=== PATIENT | female | born 1955 | race Caucasian/White ===

== ENCOUNTER → 2018-09-25 | Outpatient (CLI) | payer BC ==
[~2018-09-25] MED LIST: GASTROGRAFIN SOLUTION 30ML (Q9963) As Ordered ONE; ISOVUE-370 76% 100ML VIAL (Q9967) As Ordered ONE
--- NOTE | 2018-09-25 17:07 | REP ---
CT of the abdomen and pelvis multiphase imaging: Scanning of the abdomen is performed without IV contrast. This is followed by scanning of the abdomen and pelvis during the portal venous phase of IV contrast enhancement. This is followed by scanning of the abdomen during the delayed equilibrium phase of enhancement. The bowel contrast is used on all phases of the study. The liver and spleen are normal size and homogeneous on all phases of the study. The gallbladder and pancreas are unremarkable. There is a six point 8 cm hiatal hernia. The adrenals are unremarkable. The kidneys are unremarkable. The abdominal aorta is unremarkable except for occasional calcified atheroma. There is no periaortic lymph node enlargement or mass. There is no mesenteric lymph node enlargement. The bowel loops are unremarkable. Pelvis: There are enlarged iliac and femoral nodes bilaterally, the largest being a right iliac node measuring up to 16 mm short axis. There are inguinal nodes bilaterally, the largest is in measuring 15 mm short axis. The uterus, adnexa and bladder are unremarkable. Impression: There are enlarged iliac, femoral and inguinal nodes bilaterally. There is no periaortic lymph node enlargement or mass. No mesenteric lymph node enlargement. There is no ascites. The liver and spleen are normal size and homogeneous. There is a fixed hiatal hernia measuring up to 6.8 cm. Electronically Signed by Markus Cueto MD 09/25/2018 04:59 P
--- NOTE | 2018-09-25 17:26 | REP ---
CT of the chest with IV contrast: There are no comparisons. There are no infiltrates. There are no pleural effusions. There are no lung masses or nodules. There is no mediastinal, hilar or axillary lymph node enlargement. There is a 7 ml hypodense nodule in the thyroid at the confluence of the isthmus and left lobe. Consider follow-up thyroid ultrasound. There is a hiatal hernia measuring up to 6.7 centimeters in diameter. There are no lytic, blastic or destructive skeletal changes. Impression: No lymphadenopathy is identified. No lung masses, nodules, infiltrates or effusions are identified. There is a hiatal hernia as described. Electronically Signed by Markus Cueto MD 09/25/2018 05:17 P
== END ==
LOC: M RAD 14:03
PROVIDERS: ATTEND Internal Medicine Hematology & Oncology
DX: C85.85 Other specified types of non-Hodgkin lymphoma, lymph nodes of inguinal region and lower limb (principal)
CPT/HCPCS: 71260; 74178; Q9963; Q9967

== ENCOUNTER → 2018-10-23 | Outpatient (CLI) | payer BC ==
[~2018-10-23] MED LIST changes: +ESOM0.1C PO; +FERR325T3 PO; -GASTROGRAFIN SOLUTION 30ML (Q9963) As Ordered ONE; -ISOVUE-370 76% 100ML VIAL (Q9967) As Ordered ONE; +LISI10TA2 PO; +METF10004 PO; +SIMV10TA2 PO; +VITATAB74 PO
--- NOTE | 2018-10-24 15:02 | RADONC ---
RADIATION ONCOLOGY CONSULTATION NOTE DATE: 10/23/2018 CHART NUMBER: [id number] DIAGNOSIS: Tootie marginal zone lymphoma. STAGE: IIA. ECOG PERFORMANCE STATUS: 0. CONSULTATION NOTE: Ms. 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 HISTORY OF PRESENT ILLNESS: The patient was in the usual state of health but noticed a small lump in the back of her right knee since around 2016. Over the next year or so the lump slowly began increasing in size. On 07/10/2018 an MRI of the right knee was undertaken and revealed a 13.9 cm x 8.6 cm x 7.7 cm mass in the posterior soft tissues of the knee. There was noted to be evidence of invasion and involvement of the long head of the biceps femoris, the semitendinosus and the semimembranous muscle. On 07/27/2018 the patient was seen by Dr. Beard and a biopsy of the mass was undertaken which revealed a tootie marginal zone lymphoma. Subsequent CT scan done 09/25/2018 showed enlarged iliac and femoral lymph nodes bilaterally. The largest right iliac node measured 16 mm and the largest inguinal node 15 mm. These were of unknown significance. The patient has no B symptoms. PAST MEDICAL HISTORY: The patient's past medical history is positive for diabetes, hypertension and arthritis. ALLERGIES: The patient has no known drug allergies. SOCIAL HISTORY: The patient has smoked one pack of cigarettes per day for approximately 25 years. She quit in the year 1999. She drinks alcohol socially. FAMILY HISTORY: The patient's family history is positive for father with prostate cancer. REVIEW OF SYSTEMS: The patient's review of systems is positive for some decreased energy and weakness in her arms and legs. It is otherwise noncontributory. She denies nausea, vomiting, fevers, chills, night sweats, diplopia, headaches, anxiety or depression, anorexia, weight loss, visual disturbances, chest pain, urinary or bowel difficulties, bone pain, or neurological problems. PHYSICAL EXAMINATION: The patient is a well-developed, well-nourished, female in no acute distress. HEENT exam is normocephalic, atraumatic. Extraocular movements are intact. There is no palpable cervical, supraclavicular, infraclavicular, axillary, or inguinal lymphadenopathy present. Lungs are clear to auscultation and percussion. Heart has a regular rate and rhythm. Abdomen is benign with no hepatosplenomegaly, masses, or tenderness. Breast examination reveals no masses or discharge bilaterally. Skeletal examination reveals no tenderness to pressure or percussion of the bony skeleton. Extremities reveal no clubbing, cyanosis, or edema. In the posterior aspect of the right knee there is a fixed hard mass with some erythema of the skin consistent with her above mentioned history. Neurologic exam is grossly intact, as is the remainder of the physical examination. ASSESSMENT: Clearly the patient is a candidate for external beam radiation therapy and I have so informed her informed her. I have discussed with the patient in detail the potential benefits as well as possible acute and chronic sequelae of external beam radiation therapy. We discussed logistics of treatment planning, simulation and subsequent fractionated daily radiation treatments. I have discussed with the patient in detail the NCCN guidelines for marginal cell lymphomas and we will plan treating accordingly. I have scheduled the patient for the next available simulation slot and radiation treatments will begin subsequent. Thank you for allowing us to participate in the care of this very pleasant woman. If I could be of any further assistance or provide you with any information, please feel free to contact me anytime. cc: MD Eric Rodriguez MD Robin Frost, RPA-C
== END ==
LOC: M ONCR 13:41
PROVIDERS: ATTEND Radiology Radiation Oncology
DX: C85.90 Non-Hodgkin lymphoma, unspecified, unspecified site (principal)

== ENCOUNTER → 2018-11-07 | Outpatient (RCR) | payer BC ==
[2018-10-30 14:56] LABS: HEMOGLOBIN 10.5 g/dl (12.0-15.5); LYMPH % 19.8 % (24.0-44.0); MEAN CORPUSCULAR HEMOGLOBIN 22.5 pg (27.0-33.0); MEAN CORPUSCULAR HGB CONC 31.8 g/dl (32.0-36.5); MEAN CORPUSCULAR VOLUME 70.8 fl (80.0-96.0); NEUTROPHILS # 5.6 10^3/uL (1.8-7.7); NEUTROPHILS % 69.4 % (36.0-66.0); RED BLOOD COUNT 4.66 10^6/uL (4.00-5.40)
--- NOTE | 2018-11-01 09:52 | RADONC ---
RADIATION ONCOLOGY SIMULATION NOTE DATE: 10/30/2018 CHART #: [id number] Ms. Feliciano was taken to the CT scan for CT simulation of her right leg field. CT was accomplished without difficulty or discomfort. Radiation treatment planning is underway and radiation treatments will begin subsequently. An immobilization device was created and will be used throughout the course of treatment. It was created without difficulty or discomfort. I was physically present throughout the course of CT simulation.
--- NOTE | 2018-11-06 11:58 | RADONC ---
RADIATION ONCOLOGY PROGRESS NOTE DATE: 11/05/2018 CHART #: [id number] Ms. Feliciano was taken to the linear accelerator today for port filming. Port films of her leg flores were completed without difficulty or discomfort. Radiation treatments will begin tomorrow. We will change our bolus to a custom bolus.
[~2018-11-07] MED LIST changes: +CHOL100029 PO; +LISI10TA15 PO; -LISI10TA2 PO; -SIMV10TA2 PO; +SIMV10TA21 PO
== END ==
LOC: M ONCR 10-30 13:44
PROVIDERS: ATTEND Radiology Radiation Oncology
DX: C83.9 Non-follicular (diffuse) lymphoma, unspecified (principal)

== ENCOUNTER 2018-12-03 15:05 | Outpatient (RCR) | payer BC ==
--- NOTE | 2018-11-13 10:07 | RADONC ---
RADIATION ONCOLOGY PROGRESS NOTE: DATE: 11/12/2018 CHART NUMBER: [id number] Mrs. Feliciano with a diagnosis of rodríguez marginal zone lymphoma, stage II A is currently receiving treatment to the right knee. She feels that her swelling in this area has decreased somewhat. Her energy level is adequate and she reports no specific complaints referable to her disease or to her treatments. REVIEW OF SYSTEMS: The patient denies any nausea, vomiting, coughing, sputum production, hemoptysis or pain. Her energy level is such that she is able to maintain most of her day-to-day activities without any alteration of her lifestyle. Skin irritation is denied with the exception of some dry skin. EXAMINATION FINDINGS: The skin within the irradiated volume shows no evidence thus far. There is no palpable peripheral lymphadenopathy. The right knee swelling does indeed seemed to be decreased. The remainder of the physical examination is unchanged. IMPRESSION: Tolerating therapy well with no untoward side effects. PLAN: Treatments to continue.
--- NOTE | 2018-11-21 10:48 | RADONC ---
RADIATION ONCOLOGY PROGRESS NOTE DATE OF SERVICE: 11/19/2018 CHART #: [id number] Mrs. Feliciano with a diagnosis of rodríguez marginal zone lymphoma, stage II A, is currently receiving local regional radiotherapy to her right knee and she has achieved a dose thus far of 2000 cGy of a proposed 3000 cGy and reevaluate. The tumor continues to regress. She reports no issues related to her disease or to her treatments. REVIEW OF SYSTEMS: She denies any nausea, vomiting, coughing, sputum production, hemoptysis, pain, night sweats or fevers. Her energy level is slightly diminished, but she is still able to maintain most day-to-day activities without any alteration of her lifestyle. She does complain of some skin dryness, slight irritation and reddening. EXAMINATION FINDINGS: The skin within the irradiated volume shows a mild erythematous blush without desquamation. There is no palpable peripheral lymphadenopathy. Lungs are clear. The remainder of the examination findings are unchanged. IMPRESSION: Tolerating therapy well. PLAN: Treatments to continue.
--- NOTE | 2018-11-29 14:41 | RADONC ---
RADIATION ONCOLOGY PROGRESS NOTE DATE: 11/26/2018 CHART NUMBER: [id number] Ms. Feliciano is presently at a dose of 3000 cGy to her right leg and is tolerating treatments quite well at this point with no complaints related to her radiation therapy. She is having no skin pain or other discomfort. The patient's review of systems is noncontributory. Denies nausea, vomiting, fevers, chills, night sweats, diplopia, headaches, anxiety or depression, anorexia, weight loss, visual disturbances, chest pain, urinary or bowel difficulties, bone pain, or neurological problems. PHYSICAL EXAMINATION The patient's skin is in excellent condition with no evidence of radiation change present. There is no moist or dry desquamation. At this time, however, there continues to be a clearly palpable mass involving the posterior portion of her leg just behind her knee. This does continue to appear to involve at least the subcutaneous tissue. It is however much smaller than it was at presentation. We had planned on completing this patient at the present dose of 3000 cGy as per the NCCN guidelines. I put a call in to my colleague Dr. Gibson and discussed this case at length. We are both concerned that we have not yet achieved a complete response and we have also both agreed that it would be miller at this point to deliver an additional five fractions, bringing the dose of 4000 cGy. Indeed, historically, we have delivered a larger dose than the present guidelines recommended and the addition of an additional few fractions of treatment are unlikely to add any morbidity. Since this is a one-time deal in order to achieve local control, we both feel it safer to deliver a little additional radiation at this point. I discussed this at length with the patient and she also agrees she would rather have an additional few fractions of radiation than have the possibility of less than complete response and recurrence. Therefore, I am planning on continuing this patient and we will adjust the treatment plan accordingly.
[~2018-12-03 15:05] MED LIST changes: -CHOL100029 PO
--- NOTE | 2018-12-05 09:34 | RADONC ---
RADIATION ONCOLOGY TREATMENT SUMMARY DATE: 12/03/2018 CHART #: [id number] DIAGNOSIS: Tootie marginal zone lymphoma. STAGE: II A. ECOG PERFORMANCE STATUS: 0. TREATMENT SUMMARY: Ms. Feliciano is a very pleasant 63-year-old white female with the diagnosis of what appears to be a stage II A tootie marginal cell zone lymphoma involving the back of her right knee who presented to us for consideration of definitive external beam radiation therapy. We treated the patient to the back of her right knee for a total dose of 4000 cGy delivered in 20 fractions of 200 cGy each over 26 elapsed days from 11/06/2018 through 12/03/2018. The patient's knee was treated on the linear accelerator utilizing parallel opposed lateral flores with a 6 MV photon beam. A tissue equivalent bolus was placed over the involved skin region. Ms. Feliciano tolerated her treatments quite well and was able to complete therapy as prescribed without interruption. We had initially planned on completing her therapy after 3000 cGy, however, at that point it was found that she still had quite a bit of residual involvement. I spoke at length with her other radiation oncologist, Dr. Rodriguez, and we decided it safer to deliver an additional 1000 cGy to this area. I have scheduled the patient to see me again in 1 month for further followup. She will also continue to be followed by her other physicians as well. cc: MD Eric Rodriguez MD Robin Frost, [facility]
[2019-01-31] MEDS ORDERED: CHOL100029 PO (14:25)
== END 2018-12-08 ==
LOC: M ONCR 15:05
PROVIDERS: ATTEND Radiology Radiation Oncology
DX: C83.9 Non-follicular (diffuse) lymphoma, unspecified (principal)

== ENCOUNTER → 2019-01-02 | Outpatient (CLI) | payer BC ==
[~2019-01-02] MED LIST changes: +SIMV10TA2 PO; -SIMV10TA21 PO
--- NOTE | 2019-01-03 12:28 | RADONC ---
RADIATION ONCOLOGY FOLLOWUP NOTE DATE: 01/02/2019 CHART NUMBER: [id number] DIAGNOSIS: Tootie marginal zone lymphoma. STAGE: II A. ECOG PERFORMANCE STATUS: 0 FOLLOWUP NOTE: Ms. Feliciano is a very pleasant, 63-year-old white female with the diagnosis of what appears to be a stage II A tootie marginal zone lymphoma involving the back of her right knee who is presenting to me today for routine followup visit 1 month post completion of external beam radiation therapy. The patient presents today reporting that she is doing quite well with no complaints at this time related to her radiation therapy or disease. She is having no skin pain at this time, or fevers or chills. REVIEW OF SYSTEMS: The patient's review of systems is noncontributory. Denies nausea, vomiting, fevers, chills, night sweats, diplopia, headaches, anxiety or depression, anorexia, weight loss, visual disturbances, chest pain, urinary or bowel difficulties, bone pain, or neurological problems. PHYSICAL EXAMINATION: The patient is a well-developed, well-nourished, 63-year-old female, in no acute distress. HEENT exam is normocephalic, atraumatic. Extraocular movements are intact. There is no palpable cervical, supraclavicular, infraclavicular, axillary, or inguinal lymphadenopathy present. Lungs are clear to auscultation and percussion. Heart has a regular rate and rhythm. Abdomen is benign with no hepatosplenomegaly, masses, or tenderness. Breast examination reveals no masses or discharge bilaterally. Skeletal examination reveals no tenderness to pressure or percussion of the bony skeleton. Extremities reveal no clubbing, cyanosis, or edema. Neurologic exam is grossly intact, as is the remainder of the physical examination. The skin over the irradiated field is some tanning and has healed. It is overall in good condition. ASSESSMENT: The patient is clinically stable at this time. I have scheduled her to see me again in 1 month for further followup. She will also continue to be followed by her other physicians as well. cc: MD Eric Rodriguez MD Robin Frost, RPA-C
== END ==
LOC: M ONCR 15:10
PROVIDERS: ATTEND Radiology Radiation Oncology
DX: C83.9 Non-follicular (diffuse) lymphoma, unspecified (principal)

== ENCOUNTER → 2019-01-09 | Outpatient (CLI) | payer BC ==
[2019-01-09 17:25] LABS: PERCENT SATURATION 26.8 % (13.2-45.0)
[2019-01-09 18:35] LABS: BASO # 0.1 10^3/uL (0.0-0.2); EOS # 0.2 10^3/uL (0.0-0.5); EOS % 4.1 % (0.0-3.0); HEMATOCRIT 40.1 % (36.0-47.0); HEMOGLOBIN 12.5 g/dl (12.0-15.5); LYMPH # 0.9 10^3/uL (1.5-5.0); MEAN CORPUSCULAR HEMOGLOBIN 25.6 pg (27.0-33.0); MEAN CORPUSCULAR HGB CONC 31.2 g/dl (32.0-36.5); MONO # 0.6 10^3/uL (0.0-0.8); MONO % 10.9 % (0.0-5.0); NEUTROPHILS % 68.3 % (36.0-66.0); PLATELET COUNT, AUTOMATED 233 10^3/uL (150-450); RED BLOOD COUNT 4.89 10^6/uL (4.00-5.40); WHITE BLOOD COUNT 5.8 10^3/uL (4.0-10.0)
== END ==
LOC: M LAB 16:31
PROVIDERS: ATTEND Physician Assistant Medical
DX: D50.9 Iron deficiency anemia, unspecified (principal)

== ENCOUNTER 2019-02-15 06:50 | Day surgery (SDC) | payer BC ==
[~2019-02-15] VITALS: Ht 167.6 cm; Wt 105.1 kg
[~2019-02-15 06:50] MED LIST changes: +CHOL100029 PO; +NS 1,000 ML IV ONE
[2019-02-15] MEDS ORDERED: LIDOCAINE 2% INJ 100 MG/5 ML SDV (FOR ANES.) As Ordered ONE (08:29)
[2019-02-15] MEDS ORDERED: fentaNYL 100 MCG/2 ML INJECTION (J3010) As Ordered ONE (08:29)
[2019-02-15] MEDS ORDERED: PROPOFOL 500 MG/50 ML VIAL As Ordered ONE (08:29)
--- NOTE | 2019-02-15 09:17 | ROOR ---
Patient Name: Charo Feliciano Procedure Date: 02/15/2019 8:23 AM Date of : 1955 Age: 63 Room: [facility] Gender: Female Note Status: Finalized Procedure: Upper GI endoscopy Indications: Iron deficiency anemia, Heartburn Providers: Tony Mclaughlin MD Referring MD: Иван PAGE Requesting Provider: Medicines: Monitored Anesthesia Care Complications: No immediate complications. Procedure: Pre-Anesthesia Assessment: - Prior to the procedure, a History and Physical was performed, and patient medications and allergies were reviewed. The patient is competent. The risks and benefits of the procedure and the sedation options and risks were discussed with the patient. All questions were answered and informed consent was obtained. Patient identification and proposed procedure were verified by the physician, the nurse and the anesthesiologist in the procedure room. Mental Status Examination: alert and oriented. Airway Examination: normal oropharyngeal airway and neck mobility. Respiratory Examination: clear to auscultation. CV Examination: normal. Prophylactic Antibiotics: The patient does not require prophylactic antibiotics. Prior Anticoagulants: The patient has taken no previous anticoagulant or antiplatelet agents. ASA Grade Assessment: II - A patient with mild systemic disease. After reviewing the risks and benefits, the patient was deemed in satisfactory condition to undergo the procedure. The anesthesia plan was to use monitored anesthesia care (MAC). Immediately prior to administration of medications, the patient was re-assessed for adequacy to receive sedatives. The heart rate, respiratory rate, oxygen saturations, blood pressure, adequacy of pulmonary ventilation, and response to care were monitored throughout the procedure. The physical status of the patient was re-assessed after the procedure. The Endoscope was introduced through the mouth, and advanced to the second part of duodenum. The upper GI endoscopy was accomplished without difficulty. The patient tolerated the procedure well. Findings: The Z-line was regular and was found 35 cm from the incisors. A large hiatal hernia was present. Scattered moderate inflammation characterized by erosions, erythema, friability and granularity was found in the gastric body and in the gastric antrum. Biopsies were taken with a cold forceps for Helicobacter pylori testing. Verification of patient identification for the specimen was done by the physician and nurse using the patient's name, date and medical record number. The duodenal bulb and second portion of the duodenum were normal. Biopsies for histology were taken with a cold forceps for evaluation of celiac disease. Impression: - Z-line regular, 35 cm from the incisors. - Large hiatal hernia. - Gastritis. Biopsied. - Normal duodenal bulb and second portion of the duodenum. Biopsied. Recommendation: - Patient has a contact number available for emergencies. The signs and symptoms of potential delayed complications were discussed with the patient. Return to normal activities tomorrow. Written discharge instructions were provided to the patient. - High fiber diet. - Continue present medications. - Use a proton pump inhibitor PO daily for 3 months. - Follow an antireflux regimen. - Await pathology results. - Telephone GI clinic for pathology results in 2 weeks. - Return to primary care physician. Tony Mclaughlin MD Tony Mclaughlin MD 02/15/2019 9:17:32 AM Electronically signed by Tony Mclaughlin MD Number of Addenda: 0 Note Initiated On: 02/15/2019 8:23 AM Estimated Blood Loss: Estimated blood loss was minimal.
--- NOTE | 2019-02-15 09:20 | ROOR ---
Patient Name: Charo Feliciano Procedure Date: 02/15/2019 8:25 AM Date of : 1955 Age: 63 Room: [facility] Gender: Female Note Status: Finalized Procedure: Colonoscopy Indications: Iron deficiency anemia Providers: Tony Mclaughlin MD Referring MD: Иван PAGE Requesting Provider: Medicines: Monitored Anesthesia Care Complications: No immediate complications. Procedure: Pre-Anesthesia Assessment: - Prior to the procedure, a History and Physical was performed, and patient medications and allergies were reviewed. The patient is competent. The risks and benefits of the procedure and the sedation options and risks were discussed with the patient. All questions were answered and informed consent was obtained. Patient identification and proposed procedure were verified by the physician, the nurse and the anesthesiologist in the procedure room. Mental Status Examination: alert and oriented. Airway Examination: normal oropharyngeal airway and neck mobility. Respiratory Examination: clear to auscultation. CV Examination: normal. Prophylactic Antibiotics: The patient does not require prophylactic antibiotics. Prior Anticoagulants: The patient has taken no previous anticoagulant or antiplatelet agents. ASA Grade Assessment: II - A patient with mild systemic disease. After reviewing the risks and benefits, the patient was deemed in satisfactory condition to undergo the procedure. The anesthesia plan was to use monitored anesthesia care (MAC). Immediately prior to administration of medications, the patient was re-assessed for adequacy to receive sedatives. The heart rate, respiratory rate, oxygen saturations, blood pressure, adequacy of pulmonary ventilation, and response to care were monitored throughout the procedure. The physical status of the patient was re-assessed after the procedure. The Colonoscope was introduced through the anus and advanced to the terminal ileum, with identification of the appendiceal orifice and IC valve. The colonoscopy was performed without difficulty. The patient tolerated the procedure well. Findings: The perianal and digital rectal examinations were normal. The terminal ileum appeared normal. A 5 mm polyp was found in the recto-sigmoid colon. The polyp was sessile. The polyp was removed with a cold biopsy forceps. Resection and retrieval were complete. Verification of patient identification for the specimen was done by the physician and nurse using the patient's name, date and medical record number. Estimated blood loss was minimal. Non-bleeding external and internal hemorrhoids were found during retroflexion. The hemorrhoids were medium-sized. Impression: - The examined portion of the ileum was normal. - One 5 mm polyp at the recto-sigmoid colon, removed with a cold biopsy forceps. Resected and retrieved. - Non-bleeding external and internal hemorrhoids. Recommendation: - Patient has a contact number available for emergencies. The signs and symptoms of potential delayed complications were discussed with the patient. Return to normal activities tomorrow. Written discharge instructions were provided to the patient. - High fiber diet. - Continue present medications. - Await pathology results. - Repeat colonoscopy in 5-10 years for surveillance based on pathology results. - Telephone GI clinic for pathology results in 2 weeks. - Return to primary care physician. Tony Mclaughlin MD Tony Mclaughlin MD 02/15/2019 9:19:50 AM Electronically signed by Tony Mclaughlin MD Number of Addenda: 0 Note Initiated On: 02/15/2019 8:25 AM Estimated Blood Loss: Estimated blood loss was minimal.
[2019-02-15 09:37] VITALS: BP 134/61
== END 2019-02-15 09:39 | disposition home or self-care (01) ==
LOC: M OPP 06:50
PROVIDERS: ATTEND Internal Medicine Gastroenterology
DX: K64.8 Other hemorrhoids (principal); K63.5 Polyp of colon; D50.9 Iron deficiency anemia, unspecified; K21.9 Gastro-esophageal reflux disease without esophagitis; K44.9 Diaphragmatic hernia without obstruction or gangrene; K29.70 Gastritis, unspecified, without bleeding; C83.9 Non-follicular (diffuse) lymphoma, unspecified; R12 Heartburn; Z79.899 Other long term (current) drug therapy; Z79.84 Long term (current) use of oral hypoglycemic drugs
CPT/HCPCS: 43239; 45380; 88305; J3010

== ENCOUNTER → 2019-04-16 | Outpatient (CLI) | payer BC ==
[~2019-04-16] MED LIST changes: -NS 1,000 ML IV ONE; -SIMV10TA2 PO; +SIMV10TA21 PO
--- NOTE | 2019-04-17 10:38 | REP ---
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 Post radiation therapy to the right knee. COMPARISONS: CT chest abdomen and pelvis September 25 2018. No comparison PET/CT. There is an MRI study of the knee from July 10, 2018 done at Replaced by [facility]. TECHNIQUE: 54 minutes following the intravenous injection of a 8.23 mCi dose of F18 FDG, three-dimensional PET scintigraphy is acquired from the skull base to the proximal calves . Triplanar noncontrast CT scanning is acquired through the same anatomic range for attenuation correction, and image registration with scan parameters optimized to minimize radiation exposure to the patient. PET scintigraphy and CT datasets were fused and displayed on a workstation with multiplanar and projection display capability. PET/CT FINDINGS: Head and neck soft tissues are unremarkable. No abnormal hypermetabolic uptake is seen within the thorax. A hiatal hernia is noted behind the heart. There is a focus of slightly increased tracer at the GE junction in the distal esophagus, maximum SUV value 5.3. This may be physiologic. In the abdomen and pelvis, there is normal hepatic, splenic, gastrointestinal, and genitourinary FDG accumulation. The spleen is not enlarged. No abnormal rodríguez uptake is seen. No abnormal skeletal lesion seen. There is a infiltrative soft tissue lesion in the popliteal soft tissues of the right knee region which is much improved from the comparison MRI study. This shows mildly increased uptake. Maximum standard uptake value is 3.62. There is non-hypermetabolic diffuse soft tissue and subcutaneous uptake about the right knee consistent with postradiation change. No inguinal or pelvic hypermetabolic rodríguez uptake is seen. IMPRESSION: There is some residual soft-tissue density in the popliteal fossa on the right with mildly hypermetabolic uptake. No other rodríguez uptake is seen. There is a focus of uptake at the gastroesophageal junction associated with a hiatal hernia. This may be physiologic. Otherwise negative. Electronically Signed by Quique Bullard MD 04/17/2019 11:29 A
== END ==
LOC: M PLARAD 12:16
PROVIDERS: ATTEND Radiology Radiation Oncology
DX: C83.9 Non-follicular (diffuse) lymphoma, unspecified (principal); K44.9 Diaphragmatic hernia without obstruction or gangrene
CPT/HCPCS: 78815; A9552

== ENCOUNTER → 2019-04-17 | Outpatient (CLI) | payer BC ==
--- NOTE | 2019-04-18 11:41 | RADONC ---
RADIATION ONCOLOGY FOLLOWUP NOTE DATE: 04/17/2019 CHART #: [id number] DIAGNOSIS: Tootie marginal zone lymphoma. STAGE: II A. ECOG PERFORMANCE STATUS: 0. FOLLOWUP NOTE: Ms. 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 The patient presents today reporting that generally she is doing well, although she does have some right lower extremity edema. She is having no pain, fevers, chills or night sweats. REVIEW OF SYSTEMS: The patient's review of systems is positive for some swelling in her right lower leg, but is otherwise noncontributory. Denies nausea, vomiting, fevers, chills, night sweats, diplopia, headaches, anxiety or depression, anorexia, weight loss, visual disturbances, chest pain, urinary or bowel difficulties, bone pain, or neurological problems. PHYSICAL EXAMINATION: The patient is a well-developed, well-nourished female in no acute distress. HEENT exam is normocephalic, atraumatic. Extraocular movements are intact. There is no palpable cervical, supraclavicular, infraclavicular, axillary, or inguinal lymphadenopathy present. Lungs are clear to auscultation and percussion. Heart has a regular rate and rhythm. Abdomen is benign with no hepatosplenomegaly, masses, or tenderness. Skeletal examination reveals no tenderness to pressure or percussion of the bony skeleton. Extremities reveal no clubbing or cyanosis. There is some grade 1 edema of her right ankle. ASSESSMENT: The patient is clinically doing quite well at this point. I obtained a PET scan done 04/16/2019 which showed a marked improvement in her mass. There is just some minimal hypermetabolic activity with an SUV value of only 3.62, which most likely is remaining residual radiation inflammation. She has no other sites of hypermetabolic activity. Ms. Feliciano is doing quite well at this point. I have scheduled her for routine followup in my office in six months' time. She will also continue her close followup with her other physicians in the meantime. She is scheduled to see Dr. Eric Maurice in June. cc: MD Eric Rodriguez MD Robin Frost, RPA-C
== END ==
LOC: M ONCR 15:14
PROVIDERS: ATTEND Radiology Radiation Oncology
DX: C83.9 Non-follicular (diffuse) lymphoma, unspecified (principal)

== ENCOUNTER → 2019-09-18 | Outpatient (CLI) | payer BC ==
--- NOTE | 2019-09-24 13:09 | RADONC ---
RADIATION ONCOLOGY FOLLOWUP NOTE DATE OF SERVICE: 09/18/2019 This is a telemedicine visit. The patient was informed of the risks including security breech, technological failure, inability to perform a comprehensive physical exam which could delay or prevent an accurate diagnosis, and potential complications from treatment decisions rendered over a telemedicine platform. The patient understands and consented to the use of telehealth services. Phone only. CHART NUMBER: [id number]. DIAGNOSIS: [place]ie marginal zone lymphoma. STAGE: IIA. ECOG PERFORMANCE STATUS: 0. FOLLOWUP NOTE: Ms. Feliciano is a delightful 64-year-old white female with the diagnosis of a stage IIA nodular marginal zone lymphoma involving the back of her knee who is presenting to us today for routine followup visit 10 months post completion of external beam radiation therapy. The patient presents today reporting that she is doing quite well with no complaints at this time related to her radiation therapy or disease. She has no pain or discomfort. She has no fullness or other issues with the treated area. She has no fevers, chills, or night sweats. REVIEW OF SYSTEMS: The patient's review of systems is noncontributory. She denies nausea, vomiting, fevers, chills, night sweats, diplopia, headaches, anxiety or depression, anorexia, weight loss, visual disturbances, chest pain, urinary or bowel difficulties, bone pain, or neurological problems. PHYSICAL EXAMINATION: Physical examination was deferred as per COVID-19 precautions. ASSESSMENT: The patient is clinically doing quite well at this time. She is being followed and managed by her medical oncologist, Eric Maurice MD, as well as her other physicians. She is scheduled see Dr. Maurice in 1 year. I have, therefore, set her up to be seen by us in three months' time. cc: MD Eric Rodriguez MD Robin Frost, RPA-C
== END ==
LOC: M ONCR 15:15
PROVIDERS: ATTEND Radiology Radiation Oncology
DX: C83.9 Non-follicular (diffuse) lymphoma, unspecified (principal)

== ENCOUNTER → 2020-01-15 | Outpatient (CLI) | payer BC ==
--- NOTE | 2020-01-15 16:49 | RADONC ---
Radiation Oncology Hx/FUP Radiation Oncology Hx/FUP Date of Service: Jan 15, 2020 Pt Identifier Charo Feliciano is a 64 year old female seen for a followup visit today at the department of radiation oncology for a history of stage IA MZL of the right popliteal nodes s/p RT to 40 Gy in 20 fractions completed 12/03/2018. Diagnosis/Treatment History Oncologic History 2016 noted swelling behind right knee. 07/10/18 MRI right knee revealed rodríguez conglomeration. 07/27/18 Biopsy showing MZL CD20+ CD45+ Bcl2+, flow cytometry negative. 09/26/18 CT scans revealing only the right popliteal mass and so was staged IA. 12/03/18 completed 40 Gy in 20 fractions to the right leg with Dr. Torre. 04/16/19 PET-CT showing interval decrease in the size of the rodríguez mass with mild uptake. Interval History Seen today feeling well overall. 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 She has also gained weight in recent months. She has noted no decreased ROM in the treated leg, however, she has had her right leg, 'give out' intermittently in the past several months. She has no right leg pain. She does notice some changes in the way the posterior right leg feels to touch. She does not have and fevers, chills, or night sweats. She has no abdominal pain or discomfort. She notes no new lumps or bumps. Current Therapy Surveillance Stage MZL right popliteal nodes stage IA (incorrectly staged in prior RT notes) Social History: Non-smoker Rarely drinks Allergies / Meds Home Meds Reported Medications Vitamin D (Vitamin D3) 1,000 Unit Tablet, 1000 UNITS PO DAILY, TAB 01/31/19 Ferrous Sulfate (Ferrous Sulfate) 325 Mg Tablet., 1 TAB PO DAILY for 30 Days, #30 TAB 10/23/18 Mv-Mn/Iron/Folic Acid/Herb 190 (Vitamin D3 Complete Caplet) 1 Each Tablet, 1 TAB PO, TAB 10/23/18 Esomeprazole Magnesium (Esomeprazole Magnesium) 20 Mg Capsule.dr, 20 MG PO DAILY for acid reflux for 30 Days, #30 CAP 10/23/18 Simvastatin (Simvastatin) 10 Mg Tablet, 10 MG PO DAILY 10/23/18 Lisinopril/Hydrochlorothiazide (Lisinopril-Hctz 10-12.5 mg Tab) 1 Each Tablet, 10-12.5 MG PO DAILY 10/23/18 Metformin HCl (Metformin HCl) 1,000 Mg Tablet, 1000 MG PO BID 10/23/18 Review of Systems Review of Systems Constitutional: Denies: Chills, Fever, Night Sweats, Weakness, Fatigue, Weight Loss Eyes: Denies: Pain, Vision change, Conjunctivae inflammation HEENT: Denies: Head Aches Skin: Denies: Rash, Lesions Pulmonary: Denies: Dyspnea, Cough Cardiovascular: Denies: Chest Pain, Palpitations Gastrointestinal: Denies: Nausea, Vomiting, Abdominal Pain, Constipation Genitourinary: Denies: Dysuria, Frequency Hematologic: Denies: Bruising, Bleeding Excessively, Petecchia, Purpura, Enlarged Lymph Nodes Endocrine: Denies: Polydipsia, Polyuria, Heat Intolerance Musculoskeletal: Denies: Neck pain, Shoulder pain, Arm pain, Back pain, Hand pain, Leg pain, Foot pain, Joint sweling, Muscle stiffness Neurological: Denies: Weakness, Numbness Psych: Reports: Mood Normal; Denies: Anxiety, Depression Physical Examination Vital Signs Wt 256 lb T 97.2 P 91 RR 18 BP 168/94 O2 96% Pain 0 Fatigue 1 General Exam: Positive: Alert, Cooperative, No Acute Distress Eye Exam: Positive: PERRLA, Conjunctiva & lids normal, EOMI ENT EXAM: Positive: Atraumatic, Mucous membr. moist/pink, Pharynx Normal; Negative: Pharyngeal Edema Neck Exam: Positive: Supple; Negative: Lymphadenopathy Chest Exam: Positive: Clear to auscultation, Normal air movement Heart Exam: Positive: Rate Normal, Regular Rhythm Abdomen Exam: Positive: Normal bowel sounds, Soft; Negative: Tenderness, Hepatospenomegaly, Mass Extremity Exam: Positive: Edema (1+ pretibial), Normal pulses, Other (There is palpable fibrosis in the treated area behind the right knee. There is very mild hyperpigmentation present over the treated skin) Skin Exam: Positive: Nl turgor and temperature Other Physical Findings Complete rodríguez examination: No popliteal, inguinal, abdominal (incl splen omegaly), axillary, epitrochlear, supra or infraclavicular, cervical, or preauricular lymph nodes palpated. The palatine tonsils are not enlarged. Diagnostic and Laboratory Diagnostic Review Radiologic images, relevant labs and pathology reports were personally reviewed and discussed with Ms. Feliciano. Assessment and Plan Impression Assessment Ms. Feliciano is a 64 year old female seen for a followup visit today at the [facility] of radiation oncology for a history of stage IA MZL of the right popliteal nodes s/p RT to 40 Gy in 20 fractions completed 12/03/2018. She has some minor sequelae of RT to the RLE, namely some palpable fibrosis, which is not limiting functio or painful, some mild hyperpigmentation, and likely some synovial dysfunction leading her intermittent arthritic type symptom of the knee 'giving out'. Explained the latter could be improved by weight loss and exercise. Her LE swelling is not treatment related as it is symmetric and dependent portion of the leg only. I suggested she elevate her legs while working. Most importantly she has no evidence of rodríguez recurrence behind the right knee or in any other readily examinable rodríguez basin. She will be seeing Dr. Maurice in March 2020, thus I will see her in 6 months time. As she gets further out from primary RT we can consider spacing her appointments out longer. Performance Status ECOG 0 Plan Follow up in 6 months Ms. Feliciano was encouraged to call with questions or concerns in the interim period. JAQUAN CONWAY MD Jan 15, 2020 16:49
== END ==
LOC: M ONCR 15:21
PROVIDERS: ATTEND General Practice
DX: C83.9 Non-follicular (diffuse) lymphoma, unspecified (principal)

== ENCOUNTER → 2020-09-02 | Outpatient (CLI) | payer BC ==
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
== END ==
LOC: M ONCR 15:20
PROVIDERS: ATTEND General Practice
DX: C83.9 Non-follicular (diffuse) lymphoma, unspecified (principal)

== ENCOUNTER → 2021-02-24 | Outpatient (CLI) | payer BC ==
[2021-02-24 17:28] LABS: FREE T4 1.12 NG/DL (0.76-1.46)
== END ==
LOC: M LAB 16:02
PROVIDERS: ATTEND General Practice
DX: C83.9 Non-follicular (diffuse) lymphoma, unspecified (principal)

== ENCOUNTER → 2021-02-24 | Outpatient (CLI) | payer BC ==
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
== END ==
LOC: M ONCR 14:42
PROVIDERS: ATTEND General Practice
DX: C83.9 Non-follicular (diffuse) lymphoma, unspecified (principal); Z92.3 Personal history of irradiation; Z79.899 Other long term (current) drug therapy

== ENCOUNTER → 2021-09-20 | Outpatient (CLI) | payer BC ==
[~2021-09-20] MED LIST changes: -LISI10TA15 PO; +LISI10TA24 PO
== END ==
LOC: M WHC 15:53
PROVIDERS: ATTEND Internal Medicine Hematology & Oncology
DX: C85.85 Other specified types of non-Hodgkin lymphoma, lymph nodes of inguinal region and lower limb (principal)

== ENCOUNTER → 2021-10-25 | Outpatient (CLI) | payer BC ==
[~2021-10-25] MED LIST changes: +HYDR-3490 PO; +LIDOCAINE 1% MDV 20ML VIAL As Ordered ONE; +LOSA25TA13 PO
[2021-10-25 09:20] VITALS: BP 179/88
== END ==
LOC: M IRPRO 08:25
PROVIDERS: ATTEND Internal Medicine Hematology & Oncology
DX: C85.85 Other specified types of non-Hodgkin lymphoma, lymph nodes of inguinal region and lower limb (principal)

== ENCOUNTER → 2022-02-21 | Outpatient (CLI) | payer BC ==
[~2022-02-21] MED LIST changes: -LIDOCAINE 1% MDV 20ML VIAL As Ordered ONE
== END ==
LOC: M PLARAD 08:07
PROVIDERS: ATTEND Radiology Radiation Oncology
DX: C85.85 Other specified types of non-Hodgkin lymphoma, lymph nodes of inguinal region and lower limb (principal); I65.23 Occlusion and stenosis of bilateral carotid arteries; J34.1 Cyst and mucocele of nose and nasal sinus; J32.2 Chronic ethmoidal sinusitis; I70.0 Atherosclerosis of aorta; I25.10 Atherosclerotic heart disease of native coronary artery without angina pectoris; K44.9 Diaphragmatic hernia without obstruction or gangrene; K76.0 Fatty (change of) liver, not elsewhere classified
CPT/HCPCS: 78815; A9552

== ENCOUNTER → 2022-03-30 | Outpatient (CLI) | payer BC ==
[~2022-03-30] MED LIST changes: +LIDOCAINE 1% MDV 20ML VIAL As Ordered ONE
[2022-03-30 13:10] VITALS: BP 175/90
== END ==
LOC: M IRPRO 12:04
PROVIDERS: ATTEND Internal Medicine Hematology
DX: C85.85 Other specified types of non-Hodgkin lymphoma, lymph nodes of inguinal region and lower limb (principal)

== ENCOUNTER → 2022-05-26 | Outpatient (CLI) | payer BC ==
[~2022-05-26] MED LIST changes: -LIDOCAINE 1% MDV 20ML VIAL As Ordered ONE
== END ==
LOC: M ONCR 15:19
PROVIDERS: ATTEND General Practice
DX: C83.05 Small cell B-cell lymphoma, lymph nodes of inguinal region and lower limb (principal); Z79.84 Long term (current) use of oral hypoglycemic drugs; Z79.899 Other long term (current) drug therapy; Z88.8 Allergy status to other drugs, medicaments and biological substances

== ENCOUNTER 2022-06-06 13:50 | Outpatient (RCR) | payer BC | END 2022-06-07 | LOC: M ONCR 13:50 | PROVIDERS: ATTEND General Practice | DX: C83.05 Small cell B-cell lymphoma, lymph nodes of inguinal region and lower limb (principal) ==

== ENCOUNTER → 2022-07-08 | Outpatient (RCR) | payer BC | LOC: M ONCR 06-08 10:49 | PROVIDERS: ATTEND General Practice | DX: C83.05 Small cell B-cell lymphoma, lymph nodes of inguinal region and lower limb (principal) ==

== ENCOUNTER 2022-07-12 15:00 | Outpatient (RCR) | payer BC | END 2022-08-07 | LOC: M ONCR 15:00 | PROVIDERS: ATTEND General Practice | DX: C83.05 Small cell B-cell lymphoma, lymph nodes of inguinal region and lower limb (principal) ==

== ENCOUNTER → 2022-09-12 | Outpatient (CLI) | payer BC | LOC: M PLARAD 14:16 | PROVIDERS: ATTEND General Practice | DX: C83.05 Small cell B-cell lymphoma, lymph nodes of inguinal region and lower limb (principal) | CPT/HCPCS: 78815; A9552 ==

== ENCOUNTER → 2022-10-13 | Outpatient (CLI) | payer BC | LOC: M ONCR 15:16 | PROVIDERS: ATTEND General Practice | DX: C83.05 Small cell B-cell lymphoma, lymph nodes of inguinal region and lower limb (principal); Z71.2 Person consulting for explanation of examination or test findings; Z79.899 Other long term (current) drug therapy; Z92.3 Personal history of irradiation ==

== ENCOUNTER → 2023-05-16 | Outpatient (CLI) | payer BC | LOC: M ONCR 15:20 | PROVIDERS: ATTEND General Practice | DX: C83.05 Small cell B-cell lymphoma, lymph nodes of inguinal region and lower limb (principal); Z71.2 Person consulting for explanation of examination or test findings; Z79.84 Long term (current) use of oral hypoglycemic drugs; Z79.899 Other long term (current) drug therapy; Z92.3 Personal history of irradiation ==

== ENCOUNTER → 2023-11-04 | Outpatient (CLI) | payer BC ==
[~2023-11-04] MED LIST changes: -ESOM0.1C PO; +ESOM20CA2 PO
[2023-11-04 09:35] LABS: HEMATOCRIT 41.5 % (36.0-47.0); HEMOGLOBIN 13.8 g/dl (12.0-15.5); MEAN CORPUSCULAR HEMOGLOBIN 30.3 pg (27.0-33.0); MEAN CORPUSCULAR HGB CONC 33.3 g/dl (32.0-36.5); PLATELET COUNT, AUTOMATED 191 10^3/uL (150-450); RED BLOOD COUNT 4.56 10^6/uL (4.00-5.40); WHITE BLOOD COUNT 5.7 10^3/uL (4.0-10.0)
[2023-11-04 10:00] LABS: ALBUMIN 3.6 G/DL (3.2-5.2); ALKALINE PHOSPHATASE 63 U/L (46-116); ALT/SGPT 27 U/L (7.0-40); AST/SGOT 15 U/L (<34); BILIRUBIN,TOTAL 0.6 MG/DL (0.3-1.2); BLOOD UREA NITROGEN 16 MG/DL (9-23); CARBON DIOXIDE LEVEL 29 MMOL/L (20-31); CHLORIDE LEVEL 106 MMOL/L (98-107); CREATININE FOR GFR 0.85 MG/DL (0.55-1.30); GLOMERULAR FILTRATION RATE > 60.0 (>45); GLUCOSE, FASTING 182 MG/DL (74-106); POTASSIUM SERUM 4.4 MMOL/L (3.5-5.1); SODIUM LEVEL 140 MMOL/L (136-145); TOTAL PROTEIN 6.3 G/DL (5.7-8.2)
== END ==
LOC: M LAB 08:46
PROVIDERS: ATTEND General Practice
DX: C83.05 Small cell B-cell lymphoma, lymph nodes of inguinal region and lower limb (principal)

== ENCOUNTER → 2023-11-08 | Outpatient (CLI) | payer BC ==
[~2023-11-08] MED LIST changes: +GASTROGRAFIN SOLUTION 30ML As Ordered ONE; +ISOVUE-370 76% 100ML VIAL As Ordered ONE
== END ==
LOC: M RAD 12:35
PROVIDERS: ATTEND General Practice
DX: C83.05 Small cell B-cell lymphoma, lymph nodes of inguinal region and lower limb (principal); K44.9 Diaphragmatic hernia without obstruction or gangrene; N28.89 Other specified disorders of kidney and ureter; I70.0 Atherosclerosis of aorta; I25.10 Atherosclerotic heart disease of native coronary artery without angina pectoris; R91.8 Other nonspecific abnormal finding of lung field; J43.9 Emphysema, unspecified
CPT/HCPCS: 71260; 74177; Q9963; Q9967

== ENCOUNTER → 2023-11-15 | Outpatient (CLI) | payer BC ==
[~2023-11-15] MED LIST changes: -GASTROGRAFIN SOLUTION 30ML As Ordered ONE; -ISOVUE-370 76% 100ML VIAL As Ordered ONE
== END ==
LOC: M ONCR 15:16
PROVIDERS: ATTEND General Practice
DX: Z08 Encounter for follow-up examination after completed treatment for malignant neoplasm (principal); Z85.72 Personal history of non-Hodgkin lymphomas; Z92.3 Personal history of irradiation; Z88.8 Allergy status to other drugs, medicaments and biological substances; Z79.84 Long term (current) use of oral hypoglycemic drugs; Z79.899 Other long term (current) drug therapy

== ENCOUNTER → 2024-05-17 | Outpatient (CLI) | payer MEDICARE | LOC: M ONCR 15:17 | PROVIDERS: ATTEND General Practice | DX: C83.05 Small cell B-cell lymphoma, lymph nodes of inguinal region and lower limb (principal); Z92.3 Personal history of irradiation; Z88.8 Allergy status to other drugs, medicaments and biological substances; Z79.84 Long term (current) use of oral hypoglycemic drugs; Z79.899 Other long term (current) drug therapy ==

== ENCOUNTER → 2024-11-14 | Outpatient (CLI) | payer MEDICARE ==
[~2024-11-14] MED LIST changes: +TIRZ2.5P SQ
== END ==
LOC: M ONCR 12:42
PROVIDERS: ATTEND General Practice
DX: C83.05 Small cell B-cell lymphoma, lymph nodes of inguinal region and lower limb (principal); E11.69 Type 2 diabetes mellitus with other specified complication; Z92.3 Personal history of irradiation; Z88.8 Allergy status to other drugs, medicaments and biological substances; Z79.84 Long term (current) use of oral hypoglycemic drugs; Z79.899 Other long term (current) drug therapy

== ENCOUNTER → 2024-12-19 | Outpatient (CLI) | payer MEDICARE | LOC: M PLAIMG 12:28 | PROVIDERS: ATTEND Internal Medicine Critical Care Medicine | DX: R91.8 Other nonspecific abnormal finding of lung field (principal); I70.0 Atherosclerosis of aorta; I25.10 Atherosclerotic heart disease of native coronary artery without angina pectoris ==

== ENCOUNTER 2025-01-01 07:44 | Day surgery (SDC) | payer MEDICARE ==
[~2025-01-01] VITALS: Ht 165.1 cm; Wt 110.0 kg
[~2025-01-01 07:44] MED LIST changes: +MECO10002 PO; +VITA100T56 PO
[2025-01-01] MEDS ORDERED: GLUCAGON INJ 1 MG VIAL SC PRN (08:05)
[2025-01-01] MEDS ORDERED: LIDOCAINE 1% SDV 5 ML VIAL SC PRN (08:05)
[2025-01-01] MEDS ORDERED: GLUCOSE 4 GM CHEW PO PRN (08:05)
[2025-01-01] MEDS ORDERED: DEXTROSE 50% 50 ML SYRINGE IV PRN (08:05)
[2025-01-01] MEDS: LR 1,000 ML IV SCH (08:44)
[2025-01-01] MEDS: INSULIN LISPRO (NovoLOG) PER UNIT SC PRN (08:47)
[2025-01-01] MEDS ORDERED: ONDANSETRON 4MG 2ML VIAL As Ordered ONE (09:24)
[2025-01-01] MEDS ORDERED: dexAMETHasone 4 MG/ML 1 ML VIAL As Ordered ONE (09:24)
[2025-01-01] MEDS ORDERED: ACETAMINOPHEN 1000MG/100ML IV BAG As Ordered ONE (09:24)
[2025-01-01] MEDS ORDERED: SUGAMMADEX SODIUM 200 MG/2 ML VIAL As Ordered ONE (09:24)
[2025-01-01] MEDS ORDERED: ROCURONIUM BROMIDE 50MG/5ML VIAL As Ordered ONE (09:24)
[2025-01-01] MEDS ORDERED: LIDOCAINE 2% 100 MG/5 ML SDV (FOR ANES.) As Ordered ONE (09:24)
[2025-01-01] MEDS ORDERED: ESMOLOL 100 MG/10 ML VIAL As Ordered ONE (10:39)
[2025-01-01] MEDS ORDERED: hydrALAZINE 20 MG/ML 1 ML VIAL As Ordered ONE (10:44)
[2025-01-01] MEDS: CETACAINE SPRAY 5 GM As Ordered ONE (10:45)
[2025-01-01] MEDS ORDERED: LABETALOL 100 MG/20 ML VIAL As Ordered ONE (10:49)
[2025-01-01] MEDS: EPINEPHrine 1 MG/10 ML SYRINGE 1.5IN As Ordered ONE (11:20)
[2025-01-01] MEDS: THROMBIN 5,000 UNITS VIAL As Ordered ONE (11:44)
[2025-01-01] MEDS ORDERED: LR 1,000 ML IV SCH (12:00)
[2025-01-01] MEDS ORDERED: ONDANSETRON 4MG 2ML VIAL IV PRN (12:00)
[2025-01-01 12:40] VITALS: BP 146/69; TEMP 97.9; O2SAT 96
== END 2025-01-01 13:01 | disposition home or self-care (01) ==
LOC: M SDC 07:44
PROVIDERS: ATTEND Internal Medicine Critical Care Medicine
DX: J84.10 Pulmonary fibrosis, unspecified (principal); E11.9 Type 2 diabetes mellitus without complications; C83.08 Small cell B-cell lymphoma, lymph nodes of multiple sites; I10 Essential (primary) hypertension; K21.9 Gastro-esophageal reflux disease without esophagitis; Z79.899 Other long term (current) drug therapy; Z79.84 Long term (current) use of oral hypoglycemic drugs; Z92.3 Personal history of irradiation; Z88.8 Allergy status to other drugs, medicaments and biological substances; Z87.891 Personal history of nicotine dependence; Z90.89 Acquired absence of other organs
CPT/HCPCS: 31624; 31625; 31654; 71045; 76000; 87070; 87077; 87102; 87116; 87186; 87205; 87206; 88173; 88305; 93005; J0131; J0168; J0360; J1100; J1805; J1815; J1920; J2405; J3010